=== PATIENT | female | born 1960 ===

== ENCOUNTER 2018-05-03 08:26 | Outpatient (CLI) | payer OTHER | END 2018-05-03 08:30 | disposition home or self-care (01) | LOC: SONOGRAMA 08:26 | DX: E04.1 Nontoxic single thyroid nodule (principal) ==

== ENCOUNTER → 2022-06-30 | Outpatient (CLI) | payer OTHER | END | disposition home or self-care (01) | LOC: SONOGRAMA 09:30 | PROVIDERS: ATTEND Pathology Anatomic Pathology & Clinical Pathology | DX: D34 Benign neoplasm of thyroid gland (principal); E04.9 Nontoxic goiter, unspecified; E03.9 Hypothyroidism, unspecified ==